=== PATIENT | female | born 1940 | race Caucasian/White ===

== ENCOUNTER 2022-12-30 18:03 | Observation (INO) | payer MEDICARE ==
[2022-12-26 08:11] LABS: BASOPHILS % 0.5 % (0.0-1.0); EOSINOPHILS # (AUTO) 0.5 (0.0-0.4); EOSINOPHILS % 7.7 % (0.0-6.0); HEMATOCRIT 41.7 % (34.2-44.1); HEMOGLOBIN 13.3 g/dL (12.0-16.0); LYMPHOCYTES # (AUTO) 1.6 (1.0-3.2); LYMPHOCYTES % 26.8 % (18.0-39.1); MEAN CORPUSCULAR HEMOGLOBIN 32.2 pg (28-32); MEAN CORPUSCULAR HGB CONC 31.9 g/dL (31-35); MONOCYTES # (AUTO) 0.4 (0.2-0.8); MONOCYTES % 6.9 % (4.4-11.3); NEUTROPHILS # (AUTO) 3.5 (2.1-6.9); NEUTROPHILS % 58.1 % (38.7-80.0); PLATELET COUNT 252 x10e3/uL (140-360); RED BLOOD COUNT 4.13 x10e6/uL (3.6-5.1); RED CELL DISTRIBUTION WIDTH 12.1 % (11.7-14.4)
[2022-12-26 08:33] LABS: ANION GAP 16.1 mmol/L (8-16); CREATININE, SERUM 1.5 mg/dL (0.57-1.11); POTASSIUM 5.1 mmol/L (3.5-5.1)
[2022-12-26 08:45] LABS: ALBUMIN 3.9 g/dL (3.5-5.0); ALBUMIN/GLOBULIN RATIO 0.9 (0.8-2.0)
[2022-12-30] VITALS (23 sets, daily range): BP systolic 64–200; BP diastolic 52–95
[~2022-12-30] VITALS: Ht 160 cm; Wt 58.1 kg
[~2022-12-30 18:03] MED LIST: ADVIL200 M1 PO; ALPRAZOLAM 0.5 MG TAB ONE; ASPIRIN 325 MG TAB ONE; DIPHENHYDRAMINE HCL 25 MG CAP ONE; FENTANYL CITRATE/PF 100MCG/2 ML INJ ONE; HEPARIN SOD (PORCINE) 1000 UNIT/ML 30ML ONE; HEPARIN SOD/SOD CHLORIDE 2,000 ML ONE; HYDRALAZINE HCL 20 MG/ML VIAL ONE; IOPAMIDOL 370 MG/ML 100 ML INFUS..BTL INJ ONE; LIDOCAINE HCL 2% LOCAL 20 ML VIAL ONE; MIDAZOLAM HCL 2 MG/2 ML VIAL ONE; NITROGLYCERIN 0.4 MG SUBL ONE; NITROGLYCERIN/D5W 200 MCG/ML 250 ML ONE; PRASUGREL 10 MG TAB ONE; SODIUM CHLORIDE 0.9% 1000ML 1,000 ML ONE; TYLENOL325 MG PO
[2022-12-31 00:43] VITALS: BP 111/69
[2022-12-31 05:04] VITALS: BP 124/73
[2022-12-31 09:14] VITALS: BP 112/76
[2022-12-31 12:29] VITALS: BP 102/74
[2023-02-02] MEDS ORDERED: ATORVASTATIN CA20 MG PO (16:47)
[2023-02-02] MEDS ORDERED: ASPIRIN EC81 MG PO (16:47)
[2023-02-02] MEDS ORDERED: COMBIGAN EYE DRO5 ML OS (16:47)
[2023-02-02] MEDS ORDERED: CLOPIDOGREL75 MG PO (16:47)
== END 2022-12-31 14:14 | disposition home or self-care (01) ==
LOC: CATH LAB 18:03 → MED/SURG2 18:05
PROVIDERS: ADMIT Internal Medicine Interventional Cardiology; ATTEND Internal Medicine Interventional Cardiology
DX: I70.221 Atherosclerosis of native arteries of extremities with rest pain, right leg (principal); I25.118 Atherosclerotic heart disease of native coronary artery with other forms of angina pectoris; I25.2 Old myocardial infarction; I10 Essential (primary) hypertension; R94.39 Abnormal result of other cardiovascular function study; I65.23 Occlusion and stenosis of bilateral carotid arteries; E78.2 Mixed hyperlipidemia; Z01.812 Encounter for preprocedural laboratory examination; Z20.822 Contact with and (suspected) exposure to COVID-19; Z79.02 Long term (current) use of antithrombotics/antiplatelets; Z79.82 Long term (current) use of aspirin; Z79.1 Long term (current) use of non-steroidal anti-inflammatories (NSAID); Z79.899 Other long term (current) drug therapy; Z87.891 Personal history of nicotine dependence
CPT/HCPCS: 36415; 37221; 75625; 80053; 85025; 93005; C1725; C1769; C1876; C1894; G0378 ×2; J0360; J1644; J2001; J2250; J3010; J7030; Q9967; U0002; 37220; 75716

== ENCOUNTER 2023-02-03 10:23 | Observation (INO) | payer MEDICARE ==
[2023-01-30 09:58] LABS: BASOPHILS # (AUTO) 0.1 (0.0-0.1); BASOPHILS % 0.9 % (0.0-1.0); EOSINOPHILS # (AUTO) 0.3 (0.0-0.4); EOSINOPHILS % 4.6 % (0.0-6.0); HEMATOCRIT 36.4 % (34.2-44.1); HEMOGLOBIN 11.6 g/dL (12.0-16.0); LYMPHOCYTES # (AUTO) 1.1 (1.0-3.2); LYMPHOCYTES % 19.2 % (18.0-39.1); MEAN CORPUSCULAR HEMOGLOBIN 32.9 pg (28-32); MEAN CORPUSCULAR HGB CONC 31.9 g/dL (31-35); MEAN CORPUSCULAR VOLUME 103.1 fL (81-99); MONOCYTES # (AUTO) 0.4 (0.2-0.8); MONOCYTES % 7.2 % (4.4-11.3); NEUTROPHILS % 67.8 % (38.7-80.0); PLATELET COUNT 220 x10e3/uL (140-360); RED BLOOD COUNT 3.53 x10e6/uL (3.6-5.1); RED CELL DISTRIBUTION WIDTH 13.2 % (11.7-14.4)
[2023-01-30 10:26] LABS: ALANINE AMINOTRANSFERASE 35 IU/L (0-55); ALBUMIN 3.9 g/dL (3.5-5.0); ALKALINE PHOSPHATASE 101 IU/L (40-150); ANION GAP 14.3 mmol/L (8-16); BLOOD UREA NITROGEN 26 mg/dL (7-26); BUN/CREATININE RATIO 20 (6-25); CALCIUM 9.6 mg/dL (8.4-10.2); CARBON DIOXIDE 20 mmol/L (22-29); CHLORIDE 109 mmol/L (98-107); GLUCOSE 89 mg/dL (74-118); POTASSIUM 5.3 mmol/L (3.5-5.1); SODIUM 138 mmol/L (136-145)
[2023-02-03] VITALS (20 sets, daily range): BP systolic 87–165; BP diastolic 65–100; PULSE 63–96; RESP 13–27; TEMP 97.6–98; O2SAT 98–100
[~2023-02-03] VITALS: Ht 160 cm; Wt 59.0 kg
[~2023-02-03 10:23] MED LIST changes: -ALPRAZOLAM 0.5 MG TAB ONE; -ASPIRIN 325 MG TAB ONE; +ASPIRIN EC81 MG PO; +ATORVASTATIN CA20 MG PO; +CLOPIDOGREL75 MG PO; +COMBIGAN EYE DRO5 ML OS; -DIPHENHYDRAMINE HCL 25 MG CAP ONE; -FENTANYL CITRATE/PF 100MCG/2 ML INJ ONE; -HEPARIN SOD (PORCINE) 1000 UNIT/ML 30ML ONE; -HEPARIN SOD/SOD CHLORIDE 2,000 ML ONE; -HYDRALAZINE HCL 20 MG/ML VIAL ONE; -IOPAMIDOL 370 MG/ML 100 ML INFUS..BTL INJ ONE; -LIDOCAINE HCL 2% LOCAL 20 ML VIAL ONE; -MIDAZOLAM HCL 2 MG/2 ML VIAL ONE; -NITROGLYCERIN 0.4 MG SUBL ONE; -NITROGLYCERIN/D5W 200 MCG/ML 250 ML ONE; -PRASUGREL 10 MG TAB ONE; -SODIUM CHLORIDE 0.9% 1000ML 1,000 ML ONE
[2023-02-03] MEDS ORDERED: ALPRAZOLAM 0.5 MG TAB ONE (12:57)
[2023-02-03] MEDS ORDERED: DIPHENHYDRAMINE HCL 25 MG CAP ONE (12:58)
[2023-02-03] MEDS ORDERED: SODIUM CHLORIDE 0.9% 500ML 500 ML ONE (12:58)
[2023-02-03] MEDS ORDERED: SODIUM CHLORIDE 0.9% 1000ML 1,000 ML IV ONE (13:00)
[2023-02-03] MEDS ORDERED: HEPARIN SOD (PORCINE) 1000 UNIT/ML 30ML ONE (14:09)
[2023-02-03] MEDS ORDERED: HEPARIN SOD/SOD CHLORIDE 2,000 ML ONE (14:09)
[2023-02-03] MEDS ORDERED: LIDOCAINE HCL 2% LOCAL 20 ML VIAL ONE (14:09)
[2023-02-03] MEDS ORDERED: IOPAMIDOL 370 MG/ML 100 ML INFUS..BTL INJ ONE (14:10)
[2023-02-03] MEDS ORDERED: SODIUM CHLORIDE 0.9% 1000ML 1,000 ML ONE ×2 (14:11→14:43)
[2023-02-03] MEDS ORDERED: NITROGLYCERIN/D5W 200 MCG/ML 250 ML ONE (14:11)
[2023-02-03] MEDS ORDERED: FENTANYL CITRATE/PF 100MCG/2 ML INJ ONE (14:32)
[2023-02-03] MEDS ORDERED: MIDAZOLAM HCL 2 MG/2 ML VIAL ONE (14:32)
[2023-02-03] MEDS ORDERED: VERAPAMIL HCL 2.5 MG/ML 2 ML VIAL ONE (14:43)
[2023-02-03] MEDS ORDERED: PROTAMINE SULFATE 10 MG/ML 5 ML VIAL ONE ×2 (15:05)
[2023-02-03] MEDS ORDERED: HYDROCODONE/APAP 5MG-325MG TAB PO PRN (16:45)
[2023-02-03] MEDS ORDERED: Morphine 2mg Syringe 2 MG/ML SYR IV PRN (16:45)
[2023-02-03] MEDS ORDERED: ACETAMINOPHEN 325 MG TAB PO PRN (16:45)
[2023-02-03] MEDS ORDERED: ZOLPIDEM TARTRATE 5 MG TAB PO PRN (16:45)
[2023-02-03] MEDS: SODIUM CHLORIDE 0.9% 1000ML 1,000 ML IV SCH (18:34)
[2023-02-03] MEDS ORDERED: ATORVASTATIN 40 MG TAB PO SCH (21:00)
[2023-02-04] VITALS: BP 127/58; PULSE 67; RESP 17; TEMP 97.7; O2SAT 98
[2023-02-04 02:09] VITALS: BP 127/58; PULSE 67; RESP 17; TEMP 97.7; O2SAT 98
[2023-02-04] MEDS: SODIUM CHLORIDE 0.9% 1000ML 1,000 ML IV SCH (02:45)
[2023-02-04 04:00] VITALS: BP 109/67; PULSE 65; RESP 17; TEMP 98.3; O2SAT 96
[2023-02-04 07:22] VITALS: BP 112/77; PULSE 68; RESP 17; TEMP 98.3; O2SAT 99
[2023-02-04 08:00] VITALS: BP 112/77; PULSE 68; RESP 17; TEMP 98.3; O2SAT 68
[2023-02-04] MEDS ORDERED: ASPIRIN 81 MG ENTERIC COATED PO SCH (09:00)
[2023-02-04] MEDS ORDERED: CLOPIDOGREL BISULFATE 75 MG TAB PO SCH (09:00)
== END 2023-02-04 09:45 | disposition home or self-care (01) ==
LOC: CATH LAB 10:23 → MED/SURG3 17:48 → INTOOBSV 17:48
PROVIDERS: ADMIT Internal Medicine Interventional Cardiology; ATTEND Internal Medicine Interventional Cardiology
DX: I73.9 Peripheral vascular disease, unspecified (principal); I10 Essential (primary) hypertension; I25.2 Old myocardial infarction; E78.2 Mixed hyperlipidemia; Z01.812 Encounter for preprocedural laboratory examination; Z20.822 Contact with and (suspected) exposure to COVID-19; Z79.82 Long term (current) use of aspirin; Z79.899 Other long term (current) drug therapy; Z79.02 Long term (current) use of antithrombotics/antiplatelets; Z95.820 Peripheral vascular angioplasty status with implants and grafts
CPT/HCPCS: 0223U; 36415; 37225; 75625; 80053; 85025; C1724; C1769 ×3; C1887 ×2; C1894; C2623 ×2; G0378 ×2; J1644; J2001; J2250; J2720; J3010; J7030; J7040; Q9967; 37224; 75710; 99152; 99153